=== PATIENT | male | born 1995 | race Caucasian/White ===

== ENCOUNTER 2019-01-20 20:55 | Emergency (ER) | payer OTHER ==
[~2019-01-20] VITALS: Ht 185.4 cm; Wt 77.1 kg
--- NOTE | 2019-01-20 21:42 | NUR ---
PATIENT WAS MSE BY DR BEARD IN ROOM 01B. PATIENT A & O X4.
[2019-01-20] MEDS ORDERED: ONDANSETRON 4 MG/2 ML VIAL ONE (21:45)
[2019-01-20] MEDS ORDERED: HYDROMORPHONE 2 MG/1 ML DISP.SYRIN ONE (21:45)
[2019-01-20] MEDS ORDERED: HYDROMORPHONE 1 MG/1 ML DISP.SYRIN IM ONE (21:45)
[2019-01-20] MEDS ORDERED: ONDANSETRON 4 MG/2 ML VIAL IM ONE (21:45)
--- NOTE | 2019-01-20 21:53 | NUR ---
Patient discharged to home in stable conditon. Written and verbal after care instructions given. Patient verbalizes understanding of instructions. Taken by sister home.
[2019-01-20 21:57] VITALS: BP 118/71
--- NOTE | 2019-01-20 22:00 | NUR ---
PATIENT NOT A STROKE CANDIDATE.
== END 2019-01-20 22:01 | disposition home or self-care (01) ==
LOC: ER 20:55
DX: G43.909 Migraine, unspecified, not intractable, without status migrainosus (principal); J45.909 Unspecified asthma, uncomplicated; E10.9 Type 1 diabetes mellitus without complications
CPT/HCPCS: 96372 ×2; 99283; J1170; J2405; A4663